=== PATIENT | female | born 1995 | race Caucasian/White ===

== ENCOUNTER 2017-08-07 13:19 | Emergency (ER) | payer MEDICAID ==
[2017-08-07 13:25] VITALS: BP 141/75
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
== END 2017-08-07 14:04 | disposition home or self-care (01) ==
LOC: ER 13:19
DX: R19.7 Diarrhea, unspecified (principal); L55.1 Sunburn of second degree; R11.2 Nausea with vomiting, unspecified
CPT/HCPCS: 99283